=== PATIENT | female | born 1945 | race Caucasian/White ===

== ENCOUNTER → 2019-01-18 | Outpatient (CLI) | payer MEDICARE ==
--- NOTE | 2019-01-18 21:56 | PCVCIMAG ---
EXAM: BILATERAL LOWER EXTREMITY ARTERIAL DUPLEX INDICATION: Peripheral Arterial Disease. Leg pain. Nonhealing ulcers right foot. Right greater than left claudication. FINDINGS: Right Leg: Common femoral profunda femoral arteries are patent. Increased systolic velocity 532 cm/s distal [place] superficial femoral artery consistent with 95% stenosis. Popliteal artery is patent. The anterior tibial and peroneal arteries are patent. Occlusion throughout the posterior tibial artery. Left Leg: Common femoral and profunda femoral arteries are patent. Increased systolic velocity 334 cm/s mid [place] superficial femoral artery consistent with 80% stenosis. Popliteal artery is patent. The anterior tibial, peroneal, and posterior tibial arteries are patent. IMPRESSION: 95% stenosis distal [place] right superficial femoral artery. 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 80% stenosis mid [place] left superficial femoral artery. LOC:OFFICE
== END | disposition home or self-care (01) ==
LOC: PCVCIMAG 10:28
DX: S91.301A Unspecified open wound, right foot, initial encounter (principal); I73.9 Peripheral vascular disease, unspecified; M79.671 Pain in right foot; E11.8 Type 2 diabetes mellitus with unspecified complications; X58.XXXA Exposure to other specified factors, initial encounter; Y93.89 Activity, other specified; Y92.89 Other specified places as the place of occurrence of the external cause; Y99.8 Other external cause status
CPT/HCPCS: 93925

== ENCOUNTER → 2019-01-24 | Outpatient (CLI) | payer MEDICARE | END | disposition home or self-care (01) | LOC: PCVCCLINIC 15:00 | PROVIDERS: ATTEND Nuclear Medicine Nuclear Cardiology | DX: S91.301A Unspecified open wound, right foot, initial encounter (principal); I73.9 Peripheral vascular disease, unspecified; M79.671 Pain in right foot; E11.8 Type 2 diabetes mellitus with unspecified complications; X58.XXXA Exposure to other specified factors, initial encounter; Y93.89 Activity, other specified; Y92.89 Other specified places as the place of occurrence of the external cause; Y99.8 Other external cause status | CPT/HCPCS: G0463 ==

== ENCOUNTER → 2019-03-15 | Outpatient (CLI) | payer MEDICARE ==
--- NOTE | 2019-03-15 11:33 | PCVCIMAG ---
EXAM: BILATERAL CAROTID DUPLEX INDICATION: Carotid Occlusive Disease. FINDINGS: Doppler Measurements (centimeters per second): RIGHT: Peak CCA-77, Peak ECA-74, Diastolic ICA-18, Peak ICA-70, ICA/CCA Ratio-0.9. LEFT: Peak CCA-102, Peak ECA-86, Diastolic ICA-22, Peak ICA-85, ICA/CCA Ratio-0.8. RIGHT CAROTID: The carotid bulb has minimal plaque. The proximal internal carotid artery shows no significant stenosis. The common carotid artery shows no significant stenosis. The external carotid artery shows no significant stenosis. LEFT CAROTID: The carotid bulb has minimal plaque. The proximal internal carotid artery shows no significant stenosis. The common carotid artery shows no significant stenosis. The external carotid artery shows no significant stenosis. Antegrade flow in both vertebral arteries. IMPRESSION: No significant stenosis of the right internal carotid artery with minimal plaque. No significant stenosis of the left internal carotid artery with minimal plaque. LOC:[place] [id number]
== END | disposition home or self-care (01) ==
LOC: PCVCIMAG 10:52
PROVIDERS: ATTEND Nuclear Medicine Nuclear Cardiology
DX: R09.89 Other specified symptoms and signs involving the circulatory and respiratory systems (principal); E11.8 Type 2 diabetes mellitus with unspecified complications
CPT/HCPCS: 93880

== ENCOUNTER → 2019-06-01 | Outpatient (CLI) | payer MEDICARE ==
--- NOTE | 2019-06-01 11:13 | PCVCIMAG ---
EXAM: BILATERAL LOWER EXTREMITY ARTERIAL DUPLEX INDICATION: Peripheral Arterial Disease. Leg pain. FINDINGS: Right Leg: Common femoral profunda femoral arteries are patent. Increased systolic velocity 245 cm/s mid [place] right superficial femoral artery consistent with 40-50% stenosis proximal to the previous stent. Previous stent mid/distal superficial femoral artery is patent. Popliteal artery is patent. Posterior tibial artery is occluded. The anterior tibial and peroneal arteries are patent. Left Leg: Common femoral and profunda femoral arteries are patent. Increased systolic velocity 616 cm/s mid left superficial femoral artery within the midportion of prior stent consistent with 95% restenosis. Popliteal artery is patent. The anterior tibial, peroneal, posterior tibial arteries are patent. IMPRESSION: Previous stent mid/distal right superficial femoral artery is patent. 40-50% stenosis mid [place] right superficial femoral artery. Unchanged occlusion right posterior tibial artery. 95% restenosis mid left superficial femoral artery within prior stent. LOC:[id number]
== END | disposition home or self-care (01) ==
LOC: PCVCIMAG 09:39
PROVIDERS: ATTEND Nuclear Medicine Nuclear Cardiology
DX: I65.23 Occlusion and stenosis of bilateral carotid arteries (principal); E11.51 Type 2 diabetes mellitus with diabetic peripheral angiopathy without gangrene; E78.00 Pure hypercholesterolemia, unspecified; R07.89 Other chest pain; Z79.82 Long term (current) use of aspirin; Z79.899 Other long term (current) drug therapy
CPT/HCPCS: 93925; G0463